=== PATIENT | male | born 1995 | race Hispanic/Latino ===

== ENCOUNTER 2022-01-06 10:56 | Emergency (ER) | payer OTHER, SELFPAY ==
--- OUTSIDE RECORDS SUMMARY | 2022-01-06 11:00 | XMS REPORT | Continuity of Care Document ---
:1995 Author Organization [facility] t Address [address] [place] [address] Dr. Turner. [address] [place] [address] Care Team Providers Name Role Phone DR GINA GARCIA Attending Clinician Unavailable DR GINA GARCIA Admitting Clinician Unavailable Problems This patient has no known problems. Allergies, Adverse Reactions, Alerts This patient has no known allergies or adverse reactions. Medications This patient has no known medications. Procedures This patient has no known procedures. Encounters Start End Encounter Admission Attending Care Care Encounter Source Date/Time Date/Time Type Type Clinicians Facility Department ID 2017-05-05 Inpatient LD SCHNEIDER [facility] PT [id number] [address] [facility] 14:29:00 [facility] 2017-05-05 Inpatient LD SCHNEIDER [facility]VLG PT [id number] [address] [facility] 12:00:00 [facility] Results This patient has no known results.
[2022-01-06] MEDS ORDERED: MAGNES/ALUMIN/SIMET 30ML UCUP ONE (11:11)
[2022-01-06] MEDS ORDERED: FAMOTIDINE 20 MG/2 ML VIAL IV ONE (11:11)
[2022-01-06] MEDS ORDERED: LIDOCAINE VISCOUS 2% SOLN 15 ML UDC ONE (11:11)
[2022-01-06 11:24] LABS: Absolute Lymphocytes (CBC) 1.5 K/uL (0.7-4.9); Hematocrit 40.4 % (39.6-49.0); Lymphocytes % 30.9 % (15.3-44.8); MCV 88.7 fL (80-100); RBC Red Blood Cell Count 4.56 M/uL (4.33-5.43)
[2022-01-06 11:49] LABS: Albumin 3.5 g/dL (3.4-5.0); Bilirubin Total 0.8 mg/dL (0.2-1.0); Potassium 3.9 mmol/L (3.5-5.1); Protein, Total 6.7 g/dL (6.4-8.2)
[2022-01-06] MEDS ORDERED: ONDANSETRON 4 MG/2 ML VIAL ONE (12:47)
[2022-01-06] MEDS ORDERED: MORPHINE 4 MG/ML SYR ONE (12:47)
[2022-01-06] MEDS ORDERED: PROMETHAZINE INJ 25 MG/ML AMP ONE (12:50)
--- NOTE | 2022-01-06 12:58 | RAD REPORT ---
EXAM DESCRIPTION: CTAbdomen Pelvis W Contrast - 01/06/2022 12:16 pm CLINICAL HISTORY: Abdominal pain. upper abd pain COMPARISON: No comparisons TECHNIQUE: Biphasic CT imaging of the abdomen and pelvis was performed with 100 ml non-ionic IV cont rast. All CT scans are performed using dose optimization technique as appropriate and may include automated exposure control or mA/KV adjustment according to patient size. FINDINGS: The lung bases are clear. The liver, spleen, pancreas, adrenal glands and kidneys are within normal limits. No bowel obstruction, free air, free fluid or abscess. Small fat containing umbilical hernia. Appende ctomy. Mild sigmoid diverticulosis. No evidence of significant lymphadenopathy. No suspicious bony findings. IMPRESSION: No acute intra-abdominal or pelvic finding.
--- NOTE | 2022-01-06 12:58 | RAD REPORT ---
EXAM DESCRIPTION: US - Abdomen Exam Limited - 01/06/2022 12:31 pm CLINICAL HISTORY: ABD PAIN COMPARISON: No comparisons FINDINGS: The gallbladder demonstrates no gallstones. No pericholecystic fluid or gallbladder wall t hickening. The common bile duct is normal measuring 3 mm. The liver demonstrates no findings of intrahepatic biliary dilatation. IMPRESSION: Unremarkable examination.
--- NOTE | 2022-01-06 13:31 | ER ---
Nurse's Notes [facility] Name: Isael Sommers Age: 26 yrs Sex: Male : 1995 Arrival Date: 01/06/2022 Time: 10:59 Bed 18 Private MD: Diagnosis: Acute gastritis without bleeding Presentation: 01/06 11:01 Chief complaint: EMS states: EPIGASTRIC PAIN SINCE 2200 LAST PM. Coronavirus screen: At bp this time, the client does not indicate any symptoms associated with coronavirus-19. Ebola Screen: No symptoms or risks identified at this time. Initial Sepsis Screen: Does the patient meet any 2 criteria? No. Patient's initial sepsis screen is negative. Does the patient have a suspected source of infection? No. Patient's initial sepsis screen is negative. Risk Assessment: Do you want to hurt yourself or someone else? Patient reports no desire to harm self or others. Onset of symptoms was January 05, 2022 at 22:00. Care prior to arrival: Medication(s) given: zofran 4 mg, TORADOL 15MG IV initiated. 18 GA, in the right antecubital area, Glucose check: 96. 11:01 Method Of Arrival: EMS: [facility] bp 11:01 Acuity: ALLEY 3 bp Triage Assessment: 11:02 General: Appears in no apparent distress. uncomfortable, Behavior is calm, cooperative, bp appropriate for age. Pain: Complains of pain in abdomen. EENT: No deficits noted. Neuro: No deficits noted. Cardiovascular: No deficits noted. Respiratory: No deficits noted. GI: Reports upper abdominal pain. : No signs and/or symptoms were reported regarding the genitourinary system. Derm: No deficits noted. Musculoskeletal: No deficits noted. Historical: - Allergies: 11:02 No Known Allergies; bp - Home Meds: 11:02 None [Active]; bp - PMHx: 11:02 None; bp - Immunization history:: Adult Immunizations up to date. - Social history:: Smoking status: Patient denies any tobacco usage or history of. - Family history:: not pertinent. - Hospitalizations: : No recent hospitalization is reported. Screenin:03 Abuse screen: Denies threats or abuse. Denies injuries from another. Nutritional bp screening: No deficits noted. Tuberculosis screening: No symptoms or risk factors identified. Fall Risk None identified. Assessment: 11:03 General: SEE TRIAGE NOTE. bp 13:00 Reassessment: No changes from previously documented assessment. Patient and/or family bp updated on plan of care and expected duration. Pain level reassessed. 14:04 Reassessment: Patient appears in no apparent distress at this time. Patient and/or iw family updated on plan of care and expected duration. Pain level reassessed. Patient is alert, oriented x 3, equal unlabored respirations, skin warm/dry/pink. Patient states feeling better. Patient states symptoms have improved. Vital Signs: 11:01 BP 114 / 61; Pulse 87; Resp 16; Temp 98; Pulse Ox 98% ; bp 13:00 BP 113 / 63; Pulse 54; Resp 16; Pulse Ox 98% ; bp ED Course: 10:59 Patient arrived in ED. iw 11:00 Keo Lobato is PHCP. jl9 11:00 Tray Araiza MD is Attending Physician. jl9 11:00 Levi Ojeda, JI is Primary Nurse. bp 11:02 Triage completed. bp 11:03 Arm band placed on. bp 11:03 Patient has correct armband on for positive identification. Bed in low position. Call bp light in reach. Side rails up X2. 11:03 Maintain EMS IV. Dressing intact. Good blood return noted. Site clean \T\ dry. Gauge \T\ bp site: 18 G R AC. 12:18 CT Abd/Pelvis - IV Contrast Only In Process Unspecified. EDMS 12:31 Abdomen Limited US In Process Unspecified. EDMS 13:31 Adrian Salazar MD is Referral Physician. rn 14:04 No provider procedures requiring assistance completed. IV discontinued, intact, iw bleeding controlled, No redness/swelling at site. Pressure dressing applied. Administered Medications: 11:10 Drug: Pepcid (famotidine) 20 mg Route: IVP; Site: right antecubital; bp 12:59 Follow up: Response: No adverse reaction bp 11:10 Drug: GI Cocktail without - (Maalox Suspension 30 ml, Lidocaine Liquid 2 % 15 bp ml) Route: PO; 12:59 Follow up: Response: No adverse reaction bp 12:59 Not Given (Patient Refused): Zofran (Ondansetron) 4 mg IVP once; over 2 minutes bp 12:59 Drug: morphine 4 mg Route: IVP; Infused Over: 4 mins; Site: right antecubital; bp 14:00 Follow up: Response: No adverse reaction; Marked relief of symptoms iw 12:59 Drug: Phenergan (promethazine) 12.5 mg Route: IVP; Site: right antecubital; bp 14:00 Follow up: Response: No adverse reaction; Marked relief of symptoms iw Medication: 11:03 VIS not applicable for this client. bp Outcome: 13:31 Discharge ordered by . rn 14:04 Discharged to home via wheelchair, with family. iw 14:04 Condition: good 14:04 Discharge instructions given to patient, family, Instructed on discharge instructions, follow up and referral plans. medication usage, Demonstrated understanding of instructions, follow-up care, medications, Prescriptions given X 2. 14:05 Patient left the ED. iw Signatures: Dispatcher [employer] EDAlexia Rogel RN RN iw Nieto, Roman, MD MD rn Peltier, Brian, RN RN bp Linares, John jl9
--- NOTE | 2022-01-06 13:32 | EDPHYS ---
Physician Documentation [facility] Name: Isael Sommers Age: 26 yrs Sex: Male : 1995 Arrival Date: 01/06/2022 Time: 10:59 Bed 18 Private MD: ED Physician Tray Araiza HPI: 01/06 13:27 This 26 yrs old Male presents to ER via EMS with complaints of Abdominal Pain. rn 13:27 The patient presents with abdominal pain in the epigastric area. Onset: The rn symptoms/episode began/occurred last night. The symptoms do not radiate. Associated signs and symptoms: Pertinent positives: nausea, Pertinent negatives: blood in stools, chest pain, fever, shortness of breath, vomiting, vomiting blood. The symptoms are described as burning, crampy. Modifying factors: The symptoms are alleviated by nothing, the symptoms are aggravated by food. Severity of pain: At its worst the pain was moderate in the emergency department the pain is unchanged. The patient has not experienced similar symptoms in the past. The patient has not recently seen a physician. Has had problems with GERD in past, no longer takes daily medication, eats a lot of spicy stuff and had fried food last night.. Historical: - Allergies: 11:02 No Known Allergies; bp - Home Meds: 11:02 None [Active]; bp - PMHx: 11:02 None; bp - Immunization history:: Adult Immunizations up to date. - Social history:: Smoking status: Patient denies any tobacco usage or history of. - Family history:: not pertinent. - Hospitalizations: : No recent hospitalization is reported. ROS: 13:27 Constitutional: Negative for fever, chills, and weight loss, Eyes: Negative for injury, rn pain, redness, and discharge, Cardiovascular: Negative for chest pain, palpitations, and edema, Respiratory: Negative for shortness of breath, cough, wheezing, and pleuritic chest pain, Abdomen/GI: Negative for vomiting, diarrhea, and constipation, MS/Extremity: Negative for injury and deformity, Skin: Negative for injury, rash, and discoloration, Neuro: Negative for headache, weakness, numbness, tingling, and seizure. Exam: 13:27 Constitutional: This is a well developed, well nourished patient who is awake, alert, rn and in no acute distress. Head/Face: Normocephalic, atraumatic. Cardiovascular: Regular rate and rhythm. No pulse deficits. Respiratory: No increased work of breathing, no retractions or nasal flaring. Abdomen/GI: soft, mild epigastric tenderness, no rebound, neg edmonds Skin: Warm, dry MS/ Extremity: Pulses equal, no cyanosis. Neuro: Awake and alert, GCS 15 Vital Signs: 11:01 BP 114 / 61; Pulse 87; Resp 16; Temp 98; Pulse Ox 98% ; bp 13:00 BP 113 / 63; Pulse 54; Resp 16; Pulse Ox 98% ; bp MDM: 11:00 Patient medically screened. jl9 13:27 Differential diagnosis: cholecystitis, Cholelithiasis, diverticulitis, gastritis, rn gastroesophageal reflux disease, pancreatitis, Peptic Ulcer Disease, Perf. Duodenal Ulcer, Perf. Gastric Ulcer. Data reviewed: vital signs, nurses notes, lab test result(s), radiologic studies, CT scan, ultrasound, and as a result, I will discharge patient. Counseling: I had a detailed discussion with the patient and/or guardian regarding: the historical points, exam findings, and any diagnostic results supporting the discharge/admit diagnosis, lab results, radiology results, the need for outpatient follow up, to return to the emergency department if symptoms worsen or persist or if there are any questions or concerns that arise at home. Response to treatment: the patient's symptoms have markedly improved after treatment, and as a result, I will discharge patient. Special discussion: I discussed with the patient/guardian in detail that at this point there is no indication for admission to the hospital. It is understood, however, that if the symptoms persist or worsen the patient needs to return immediately for re-evaluation. Based on the history and exam findings, there is no indication for further emergent testing or inpatient evaluation. I discussed with the patient/guardian the need to see the real estate marketing coordinator for further evaluation of the symptoms. 13:27 ED course: No acute findings on imaging. Spoke at length with regarding gastritis rn and need for daily antacids as well as diet modification. . 01/06 11: Order name: CBC with Diff; Complete Time: 11:50 rn 01/06 11:01 Order name: CMP; Complete Time: 11:50 rn 01/06 11:01 Order name: Lipase; Complete Time: 11:50 rn 01/06 11:01 Order name: Abdomen Limited US; Complete Time: 13:02 rn 01/06 11:01 Order name: CT Abd/Pelvis - IV Contrast Only; Complete Time: 13:02 rn 01/06 11:01 Order name: IV Saline Lock; Complete Time: 11:04 rn 01/06 11:01 Order name: Labs collected and sent; Complete Time: 11:29 rn Administered Medications: 11:10 Drug: Pepcid (famotidine) 20 mg Route: IVP; Site: right antecubital; bp 12:59 Follow up: Response: No adverse reaction bp 11:10 Drug: GI Cocktail without - (Maalox Suspension 30 ml, Lidocaine Liquid 2 % 15 bp ml) Route: PO; 12:59 Follow up: Response: No adverse reaction bp 12:59 Not Given (Patient Refused): Zofran (Ondansetron) 4 mg IVP once; over 2 minutes bp 12:59 Drug: morphine 4 mg Route: IVP; Infused Over: 4 mins; Site: right antecubital; bp 14:00 Follow up: Response: No adverse reaction; Marked relief of symptoms iw 12:59 Drug: Phenergan (promethazine) 12.5 mg Route: IVP; Site: right antecubital; bp 14:00 Follow up: Response: No adverse reaction; Marked relief of symptoms iw Disposition Summary: 01/06/22 13:31 Discharge Ordered Location: Home rn Problem: new rn Symptoms: have improved rn Condition: Stable rn Diagnosis - Acute gastritis without bleeding rn Followup: rn - With: Adrian Salazar MD - When: 10 - 14 days - Reason: Further diagnostic work-up, Recheck today's complaints, Re-evaluation by your physician Discharge Instructions: - Discharge Summary Sheet rn - Gastritis, Adult rn Forms: - Medication Reconciliation Form rn - Work release form iw - Thank You Letter rn - Antibiotic maintenance journeyman - Prescription Opioid Use rn Prescriptions: - Protonix 40 mg Oral Tablet - take 1 tablet by ORAL route once daily; 30 tablet; Refills: 0, Product rn Selection Permitted - ondansetron 4 mg Oral tablet,disintegrating - take 1 tablet by ORAL route every 4-6 hours As needed; 20 tablet; Refills: 0, jmm Product Selection Permitted Signatures: Dispatcher [employer] Tray Puente MD MD rn Peltier Levi, RN RN Keo Sanchez 9 Alexia Valadez RN iw
[2022-01-08 07:34] VITALS: TEMP 98; O2SAT 98
[2022-01-08 07:35] VITALS: BP 113/63
== END 2022-01-06 14:05 | disposition home or self-care (01) ==
LOC: ER 10:56
DX: K29.00 Acute gastritis without bleeding (principal)
CPT/HCPCS: 85025; 36415; 83690; 80053; 74177; 76705; 96375; 96374; 99284; Q9967; J2550; J2405